=== PATIENT | male | born 2005 | race Hispanic/Latino ===

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

== ENCOUNTER 2023-05-22 14:23 | Emergency (ER) | payer SELFPAY ==
[~2023-05-22 14:23] MED LIST changes: +FAMO20TA8 PO
== END 2023-05-22 14:40 | disposition left against medical advice (07) ==
LOC: EDH 14:23
DX: H57.12 Ocular pain, left eye (principal); Z53.21 Procedure and treatment not carried out due to patient leaving prior to being seen by health care provider

== ENCOUNTER 2024-11-24 13:17 | Emergency (ER) | payer SELFPAY ==
[~2024-11-24] VITALS: Ht 165.1 cm; Wt 61.2 kg
[2024-11-24 14:37] LABS: INFLUENZA TYPE A Negative For Type A (NEGATIVE); INFLUENZA TYPE B Negative For Type B (NEGATIVE)
[2024-11-24] MEDS ORDERED: ONDA-243 PO (14:52)
--- NOTE | 2024-11-24 14:53 | ERN ---
ED Note History of Present Illness Stated Complaint: ABDOMINAL PAIN Chief Complaint: Abdominal Pain Time Seen by MD: 13:30 Time Seen by Midlevel: 13:31 Dictation: 19-year-old male presents to the emergency department due to reported having nausea, vomiting and diarrhea along with chills that began 3 days ago. He states that his mother also presented with a similar symptoms 5 days ago, has since improved. Currently, he denies having any abdominal pain associated with this. Today, she reports having had 2 episodes of diarrhea and 5 episodes of vomiting. The diarrhea is described as being semi liquidy. Upon initial evaluation, the patient presents in no acute distress. Allergies: Coded Allergies: No Known Drug Allergies (Unverified Allergy, Unknown, 04/17/21) Emergency Care [employer]: None Home Meds Active Scripts Ondansetron (Ondansetron Odt) 4 Mg Tab.rapdis, 8 MG PO Q8H PRN for NAUSEA/VOMITING for 5 Days, #12 TAB Prov:AMMY PETER 11/24/24 Famotidine (Famotidine) 20 Mg Tablet, 20 MG PO BID for 30 Days, #60 TAB Prov:RAYMOND ORO MD 10/24/21 Diclofenac Sodium (Diclofenac Sodium) 50 Mg Tablet.dr, 50 MG PO TIDP PRN for PAIN LEVEL 7 TO 10, #20 TAB 0 Refills Prov:PRAVEENA RIDDLE MD 04/17/21 Penicillin V Potassium (Penicillin V Potassium) 500 Mg Tablet, 1 TAB PO TID for 7 Days, #21 TAB 0 Refills Prov:PRAVEENA RIDDLE MD 04/17/21 Past Medical History Past Medical History: No Pertinent History Surgical History: None Social History: Other RN Note Reviewed/Agreed w/PFSH: Yes Review of System Dictation Constitutional: Chills Abdomen/GI: Nausea, vomiting, diarrhea Initial Vital Sign VS Vital Signs Date Time Temp Pulse Resp B/P (MAP) Pulse Ox O2 Delivery O2 Flow Rate FiO2 11/24/24 13:19 98.1 86 20 121/86 99 Room Air 11/24/24 13:30 0 21 Physical Exam Dictation General: awake, alert, NAD Head/Face: Normocephalic, atraumatic Eyes: PERRL, EOMI ENT: Oral mucosa moist Neck: Trachea midline, supple Cardiovascular: RRR, no edema Respiratory: Symmetrical, non-labored Abdomen: Soft, non-tender, non-distended, no guarding. Skin: Warm, dry, good turgor, no rash MS/Extremity: Pulses equal, no cyanosis, neurovascular intact, FROM Neuro: COAx4, GCS 15, steady gait, Results (Laboratory/Radiology) Laboratory/Radiology Laboratory Tests Test 11/24/24 14:02 Influenza Type A Antigen Negative For Type A Influenza Type B Antigen Negative For Type B Labs Reviewed?: Yes ED Course ED Course Orders Procedure Category Date Status Time Influenza Type A & B, LAB 11/24/24 Complete Rapid 13:36 Ondansetron Odt 4mg PHA 11/24/24 Complete Tab (Zofran 4mg Odt) 14:00 Current Medications Medications (Trade) Dose Ordered Sig/Jai Route PRN Reason Start Time Stop Time Status Last Admin Dose Admin Ondansetron HCl (zoFRAN 4MG ODT) 4 mg ONCE ONCE SL 11/24/24 14:00 11/24/24 14:01 DC 11/24/24 14:26 Vital Signs Date Time Temp Pulse Resp B/P (MAP) Pulse Ox O2 Delivery O2 Flow Rate FiO2 11/24/24 14:55 98.1 76 16 132/84 98 Room Air* 0 21 11/24/24 13:30 98.1 80 16 137/90 98 Room Air* 0 21 11/24/24 13:19 98.1 86 20 121/86 99 Room Air Medical Decision Making MDM MDM: Differential diagnosis: Viral gastroenteritis, acute gastroenteritis, acute dehydration. Rationale: Tests considered and ordered secondary to shared decision making include: Previous outside records reviewed: Old ER visits. Risk of complication and/or morbidity or mortality of patient management: None Medications-Per medication reconciliation Need for hospitalization: Patient does not meet criteria for hospitalization. Need for emergency major/minor surgery: No There are no social concerns with this patient. Prescription drug management Prescriptions will include symptomatic care Patient's prior external medical records from other ER visits were reviewed by me as indicated. Prior testing and results from previous visits were reviewed. Prior tests were taken into account with medical decision making and resource utilization, independent historian/historians were used to obtain complete medical history. I independently interpreted the test that were performed, results were reviewed by me and considered findings on radiology if ordered. Medical management and examination interpretation discussions were had by me with other qualified healthcare professionals as indicated for the patient's care. DX & DISP Disposition: Discharge Departure Impression: Primary Impression: Acute gastroenteritis Condition: Stable Scripts Ondansetron (Ondansetron Odt) 4 Mg Tab.rapdis 8 MG PO Q8H PRN for NAUSEA/VOMITING for 5 Days, #12 TAB Prov: AMMY PETER 11/24/24 Referrals: SELF,REFERRAL (PCP) AMMY PETER Nov 24, 2024 14:53 MOUNIKA HERNANDEZ DO Nov 24, 2024 16:39
[2024-11-24 14:55] VITALS: BP 132/84; PULSE 76; RESP 16; TEMP 98.1; O2SAT 98
== END 2024-11-24 15:06 | disposition home or self-care (01) ==
LOC: EDH 13:17
DX: K52.9 Noninfective gastroenteritis and colitis, unspecified (principal); R11.2 Nausea with vomiting, unspecified
CPT/HCPCS: 87804; 99283